=== PATIENT | female | born 1975 | race American Indian/Alaskan Native ===

== ENCOUNTER 2020-04-05 08:50 | Outpatient (CLI) | payer BC ==
[2020-04-05 10:22] LABS: Blood Urea Nitrogen 9 mg/dL (7-17)
--- NOTE | 2020-04-05 11:39 | Cat Scan Report ---
CT PELVIS WITHOUT CONTRAST HISTORY: Right lower quadrant abdominal swelling/mass/lump TECHNIQUE: Helical CT following 100 cc of Omnipaque 300 intravenously. Sagittal and coronal reformatt ed images. All CT scans at this location are performed using CT dose reduction for ALARA by means of automated exposure control. COMPARISON: No relevant comparison. FINDINGS: Hysterectomy changes are evident. A 1.9 cm right ovarian cyst is identified. The left adnexa is unrem arkable. The bladder, distal ureters and visualized bowel loops in the pelvis are within normal limit s. Normal appendix. No evidence for pelvic fluid, pelvic fluid collection, mass or adenopathy. No hernia is visualized. T he vascular structures are widely patent. The bony structures are unremarkable. IMPRESSION: 1.9 cm right ovarian cyst. Hysterectomy. No suspicious mass or adenopathy. Signer Name: Isaac Castorena Jr, MD Signed: 04/05/2020 11:34 AM Workstation Name: [id number]
== END 2020-04-05 08:51 | disposition home or self-care (01) ==
LOC: CT 08:50
PROVIDERS: ATTEND Obstetrics & Gynecology
DX: N83.291 Other ovarian cyst, right side (principal)
CPT/HCPCS: 36415; 72193; 82565; 84520; Q9967